=== PATIENT | male | born 1995 | race Caucasian/White ===

== ENCOUNTER 2024-08-09 06:20 | Observation (INO) | payer OTHER, SELFPAY ==
[2024-08-09] VITALS (25 sets, daily range): BP systolic 113–165; BP diastolic 61–102; PULSE 60–103; RESP 16–20; TEMP 36.7–37.2; O2SAT 94–99; BMI 30.7
--- NOTE | 2024-08-09 | DI.RAD.S_ITS ---
PROCEDURE: XR ABDOMEN 1V INDICATIONS: LEFT STENT CYSTO TECHNIQUE: 3 fluoroscopic view of the abdomen acquired. COMPARISON: [facility], CT, CT ABDOMEN PELVIS WO CON, 08/09/2024, 6:52. FINDINGS: Left ureteral stent. Dilated left renal collecting system. The previously seen stone in the distal left ureter is not appreciated. IMPRESSION: Intraoperative guidance provided. Left ureteral stent. Dictated by: Alli Tidwell M.D. on 08/09/2024 at 19:26 Approved by: Alli Tidwell M.D. on 08/09/2024 at 19:28
--- NOTE | 2024-08-09 06:48 | DI.CT.S_ITS ---
PROCEDURE: CT ABDOMEN PELVIS WO CON INDICATIONS: abdomen/left flank pain TECHNIQUE: Axial sections were acquired from the lung bases to the pubic symphysis. Coronal and sagittal reformats were performed. For radiation dose reduction, the following was used: automated exposure control, adjustment of mA and/or kV according to patient size. COMPARISON: None. FINDINGS: Image quality: Diagnostic. Lower Chest: No significant findings. URINARY: Right Kidney: No stones or hydronephrosis. Right Ureter: No hydroureter. Left Kidney: Moderate to severe left-sided hydronephrosis and extensive left perinephric fat stranding is seen. Left Ureter: Moderate to severe left-sided hydroureter and periureteral fat stranding. 6 x 5 x 8 millimeter stone is seen in distal left ureter series 2, image 115. The stone measures 1558 Hounsfield unit in density. Bladder: Normal wall thickness. No stones. ABDOMEN: Liver: No contour-deforming solid mass. Gallbladder: No radiopaque gallstones or wall thickening. Biliary ducts: No biliary dilation. Pancreas: No ductal dilation. Spleen: Size is within normal limits. Adrenal Glands: No adrenal nodules. Stomach and Bowel: Small hiatal hernia. Normal colonic caliber, without significant wall thickening. appendix is visualized and is within normal limits. No abscess collection. Peritoneum: No abnormal intraperitoneal fluid. No free air. Ventral Wall: No hernia. Abdominal Nodes: No enlarged retroperitoneal or mesenteric lymph nodes. Vessels: Aorta and inferior vena cava are normal in size. PELVIS: Pelvic Organs: Unremarkable. Pelvic Nodes: Unremarkable. Miscellaneous: No inguinal hernias are seen. Bones: Unremarkable. IMPRESSION: 1. 6 x 5 x 8 millimeter distal left ureteral stone measures 1558 Hounsfield unit in density causing moderate to severe left-sided hydronephrosis and hydroureter . No right-sided renal stones or hydronephrosis. Normal appearing urinary bladder. 2. No bowel obstruction. No abnormal bowel wall thickening or mesenteric fat stranding. Normal appendix. No free fluid or free air. No discrepancies from preliminary reading. Dictated by: Justin Vieyra M.D. on 08/09/2024 at 10:20 Approved by: Justin Vieyra M.D. on 08/09/2024 at 10:24
[2024-08-09] MEDS: KETOROLAC 30 MG/ML VIAL 15 MG IV (06:49)
[2024-08-09] MEDS: SODIUM CHLORIDE 0.9% 1,000 ML 1000 ML IV (06:50)
--- NOTE | 2024-08-09 07:18 | ED.ABDPAIN ---
HPI - Abdominal Pain General Chief Complaint: Abdominal Pain Stated Complaint: abd pain, back pain, n/v/d Time Seen by Provider: 08/09/24 06:22 Source: patient, RN notes reviewed and old records reviewed Mode of arrival: Ambulatory Limitations: no limitations History of Present Illness HPI narrative: [age] year old male no reported medical issues come in with with complaint of left flank and abdominal pain that started last night. Patient states was sort of a gradual onset but has been persistent. 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 It lasted for a day or so. Patient denies any fevers or chills. States he did have some nausea and vomiting overnight. No chest pain or shortness of breath. Patient states normal bowel movements no diarrhea or constipation. No dysuria, urgency or frequency. No testicular pain. No rash or skin changes. No recent trauma. Patient thought it might have been the windy said he ate but that was at 10:00 a.m. yesterday morning almost 24 hours ago and proximally 10 hours before his symptoms started. Patient took Tums and melatonin at home last night but has not had anything else for pain. Patient states no daily prescription medications. No prior surgeries. No known drug allergies. No tobacco, occasional alcohol, no recreational drugs. Primary care [facility] [employer] [facility]. Patient is accompanied by his girlfriend. Related Data Previous Rx's Medication Instructions Recorded oxycodone 5 mg tablet 5 mg PO Q8H PRN pain (scale score 08/09/24 7-10) #5 tabs tamsulosin 0.4 mg capsule 0.4 mg PO DAILY #90 caps 08/09/24 Allergies Allergy/AdvReac Type Severity Reaction Status Date / Time No Known Drug Allergies Allergy Verified 08/09/24 06:27 Review of Systems Review of Systems ROS Unobtainable: All systems reviewed & are unremarkable except as noted in HPI and below Patient History Social History household members: family Smoking Status: Never smoker Smoking Status: Never smoker Exam Narrative Exam Narrative: GENERAL: Alert and oriented x three, male in mild distress HEENT: Head normocephalic, atraumatic, EOMI, pupils reactive, face symmetric, moist mucous membranes NECK: Supple, full range of motion CARDIOVASCULAR: Regular rate and rhythm without murmurs, rubs or gallops. RESPIRATORY: Breath sounds equal bilaterally, no wheezes rales or rhonchi. ABDOMEN: Soft, nontender. Normoactive bowel sounds all 4 quadrants. No guarding or rebound, rigidity, no mass : Mild left CVA tenderness EXTREMITIES: Normal range of motion, no clubbing or edema. Neurovascularly intact NEUROLOGICAL: Cranial nerves II through XII grossly intact. Moving all extremities SKIN: Warm, dry, no petechiae, no rashes or lesions, no ecchymosis. Initial Vital Signs Initial Vital Signs: Vital Signs Temperature 98.3 F 08/09/24 06:27 Pulse Rate 78 08/09/24 06:27 Respiratory Rate 16 08/09/24 06:27 Blood Pressure 149/91 H 08/09/24 06:27 Pulse Oximetry 95 08/09/24 06:27 Oxygen Delivery Method Room Air 08/09/24 06:27 Course Orders Ordered: Discontinued Medications Acetaminophen (Acetaminophen 325 Mg Tablet) 975 mg PO Q6H PRN PRN Reason: Pain, Mild (1-3) Fentanyl (Fentanyl 100 Mcg/2 Ml Inj) 0 mcg IV Q5M PRN PRN Reason: Pain, Moderate (4-6) Hydromorphone HCl (Hydromorphone 0.5 Mg Inj) 0.5 mg IV NOW ONE Stop: 08/09/24 15:32 Last Admin: 08/09/24 15:35 Dose: 0.5 mg Documented By: MARTA Hydromorphone HCl (Hydromorphone 1 Mg Inj) 0 mg IV Q5MIN PRN PRN Reason: Pain, Moderate (4-6) Hydromorphone HCl (Hydromorphone 0.5 Mg Inj) 0.5 mg IV Q2H PRN PRN Reason: Breakthrough Pain Hydroxyzine HCl (Hydroxyzine 50 Mg/Ml Inj) 25 mg IM NOW PRN PRN Reason: Pain, Mild (1-3) Last Admin: 08/09/24 18:51 Dose: 25 mg Documented By: KYLAH Sodium Chloride (Normal Saline 0.9%) 1,000 mls @ 1,000 mls/hr IV BOLUS ONE Stop: 08/09/24 07:43 Last Infusion: 08/09/24 07:58 Dose: Infused Documented By: Admin: 08/09/24 06:50 Dose: 1,000 mls/hr Documented By: CHRISTAL Ceftriaxone Sodium 2,000 mg/ (Sodium Chloride) 100 mls @ 200 mls/hr IV NOW ONE Stop: 08/09/24 12:39 Last Admin: 08/09/24 12:44 Dose: 200 mls/hr Documented By: ANGELES Lactated Ringer's (Lactated Ringers) 1,000 mls @ 42 mls/hr IV CONT DEANA Last Infusion: 08/09/24 18:01 Dose: Infused Documented By: Admin: 08/09/24 14:00 Dose: 42 mls/hr Documented By: MARTA Lactated Ringer's (Lactated Ringers) 1,000 mls @ 42 mls/hr IV CONT DEANA Last Infusion: 08/09/24 18:52 Dose: Infused Documented By: Admin: 08/09/24 18:02 Dose: 42 mls/hr Documented By: MARTA Iopamidol (Iopamidol 30 Ml Vial) 10 ml INTRAURETH NOW ONE Stop: 08/09/24 18:25 Last Admin: 08/09/24 18:24 Dose: 10 ml Documented By: SALLY Ketorolac Tromethamine (Ketorolac 30 Mg/Ml Vial) 15 mg IV NOW ONE Stop: 08/09/24 06:45 Last Admin: 08/09/24 06:49 Dose: 15 mg Documented By: CHRISTAL Meperidine HCl (Meperidine 50 Mg/Ml Inj) 12.5 mg IV PACUNOW PRN PRN Reason: Mild pain or shivering Morphine Sulfate (Morphine 4 Mg/Ml Inj) 4 mg IV NOW ONE Stop: 08/09/24 09:45 Last Admin: 08/09/24 10:00 Dose: 4 mg Documented By: FIDEL Ondansetron HCl (Ondansetron 4 Mg/2 Ml Inj) 4 mg IV NOW PRN PRN Reason: Nausea And Vomiting Last Admin: 08/09/24 18:52 Dose: 4 mg Documented By: KYLAH Ondansetron HCl (Ondansetron 4 Mg/2 Ml Inj) 4 mg IV Q4H PRN PRN Reason: Nausea And Vomiting Oxycodone HCl (Oxycodone Ir 5 Mg Tablet) 5 mg PO PACUNOW PRN PRN Reason: Mild or moderate pain Oxycodone HCl (Oxycodone Ir 5 Mg Tablet) 5 mg PO Q4H PRN PRN Reason: Pain, Moderate (4-6) Oxycodone HCl (Oxycodone Ir 10 Mg Tablet) 10 mg PO Q4HR PRN PRN Reason: Pain, Severe (7-10) Vital Signs Vital signs: Vital Signs - 8 hr 08/09/24 06:27 08/09/24 06:35 08/09/24 06:35 Temperature 98.3 F Pulse Rate 78 74 Respiratory Rate 16 Blood Pressure 149/91 H 165/102 H Pulse Oximetry 95 95 Oxygen Delivery Method Room Air Room Air 08/09/24 07:00 08/09/24 07:30 08/09/24 07:46 Temperature Pulse Rate 75 61 Respiratory Rate Blood Pressure 145/85 H Pulse Oximetry 95 96 Oxygen Delivery Method 08/09/24 07:46 08/09/24 08:00 08/09/24 08:00 Temperature Pulse Rate 68 70 Respiratory Rate Blood Pressure 137/79 Pulse Oximetry 96 97 Oxygen Delivery Method 08/09/24 08:30 08/09/24 08:30 08/09/24 09:01 Temperature Pulse Rate 66 72 Respiratory Rate Blood Pressure 127/81 Pulse Oximetry 96 96 Oxygen Delivery Method 08/09/24 09:30 08/09/24 10:00 08/09/24 10:04 Temperature Pulse Rate 62 68 Respiratory Rate Blood Pressure 129/87 Pulse Oximetry 96 96 Oxygen Delivery Method 08/09/24 10:04 08/09/24 10:30 08/09/24 10:30 Temperature Pulse Rate 70 75 Respiratory Rate Blood Pressure 135/63 Pulse Oximetry 96 94 Oxygen Delivery Method 08/09/24 11:00 08/09/24 11:00 08/09/24 11:30 Temperature Pulse Rate 67 61 Respiratory Rate Blood Pressure 129/70 Pulse Oximetry 94 96 Oxygen Delivery Method 08/09/24 11:31 08/09/24 11:41 08/09/24 11:41 Temperature Pulse Rate 72 76 Respiratory Rate Blood Pressure 130/71 Pulse Oximetry 95 97 Oxygen Delivery Method 08/09/24 12:00 08/09/24 12:00 08/09/24 12:30 Temperature Pulse Rate 67 60 Respiratory Rate Blood Pressure 123/75 Pulse Oximetry 99 97 Oxygen Delivery Method 08/09/24 12:30 Temperature Pulse Rate Respiratory Rate Blood Pressure 136/76 Pulse Oximetry Oxygen Delivery Method MDM - Abdominal Pain Lab Data 08/09/24 06:40 08/09/24 06:40 Labs: Lab Results 08/09/24 08/09/24 Range/Units 06:40 09:28 WBC 15.0 H (4.5-11.0) X10^3/uL RBC 5.32 (4.5-5.9) X10^6/uL Hgb 15.7 (13.5-17.5) g/dL Hct 46.9 (41-53) % MCV 88.3 (80-100) fL MCH 29.6 (26-34) PG MCHC 33.5 (30-36) % RDW 13.5 (11.6-14.8) % Plt Count 239 (150-400) X10^3/uL Neut % (Auto) 82.7 H (50-75) % Lymph % (Auto) 8.7 L (25-40) % Phillips % (Auto) 8.3 (3-14) % Eos % (Auto) 0.2 L (2-4) % Baso % (Auto) 0.1 (0-2) % Neut # (Auto) 54260 H (1984-0541) /uL Lymph # (Auto) 1300 (2890-6253) /uL Phillips # (Auto) 1200 H (0-900) /uL Eos # (Auto) 0 (0-450) /uL Baso # (Auto) 0 (0-100) /uL Sodium 139 (137-145) mmol/L Potassium 3.9 (3.4-5.1) mmol/L Chloride 103 (98-107) mmol/L Carbon Dioxide 27 (22-32) mmol/L BUN 19 (9-20) mg/dL Creatinine 1.22 (0.66-1.25) mg/dL Estimated GFR > 60 (>60) mL/min BUN/Creatinine Ratio 15.6 (6-22) Glucose 159 H (70-100) mg/dL Calcium 9.8 (8.4-10.2) mg/dL Total Bilirubin 1.0 (0.2-1.3) mg/dL AST 34 (17-59) IU/L ALT 35 (<50) IU/L Alkaline Phosphatase 78 (38-126) U/L Total Protein 8.3 H (6.3-8.2) g/dL Albumin 4.7 (3.5-5.0) g/dL Globulin 3.6 (1.7-4.1) g/dL Albumin/Globulin Ratio 1.3 (1.0-2.8) Lipase 51 (23-300) U/L Urine RBC 5-10/hpf H (0-5/HPF) Urine WBC 1-5/hpf (0-5/HPF) Ur Squamous Epith Cells 1-5 /hpf (0-5/HPF) Calcium Oxalate Crystal Occasional H Urine Bacteria Occasional (0-1) (None) Ur Culture Indicated? Cult not indicated Vol Urine Centrifuged 10ml (spun) Point of care testing: Urine Dip Bedside Urine Glucose Negative Bedside Urine Bilirubin - Negative Bedside Urine Ketone - Negative Urine Specific Bliss 1.030 Bedside Urine Occult Blood + Bedside Urine pH 6.0 Bedside Urine Protein - Negative Bedside Urine Urobilinogen - Negative Bedside Urine Nitrite - Negative Bedside Urine Leukocytes - Negative Esterase MDM Narrative Medical decision making narrative: 28-year-old male presents with complaint of left abdominal and flank pain sort of gradual onset but had some nausea or vomiting overnight had received Toradol prior to my evaluation he was feeling much improved. Labs show white count of 15 hemoglobin of 15.7 platelets of 239. Electrolytes are appropriate, BUN 19 creatinine is 1.22 no priors for comparison glucose is 159 LFTs are otherwise negative lipase is 51 Point of care urine shows blood no nitrates no leuks. CT KUB from night rad read severe left hydro with moderate left hydroureter secondary to 6 x 5 x 8 mm calculus distal left ureter at the level of the inferior left sacroiliac joint focal periureteral edema at the site prominent perinephric stranding no seems within the left kidney unenhanced right kidney unremarkable. Moderate fluid distention of the stomach. No free fluid or free air. Appendix is normal. Patient had Toradol and fluids. Patient was feeling improved after these medications. Recheck at 9:46 a.m. patient's pain is still doing very well but he was starting to notice a little bit of increased. We will give an additional dose of pain medication. Patient was able to give urine sample reviewed his findings. Consult with Dr. Luong Urology. Discussed patient's findings from day he reviewed the imaging. Concerned that patient may bounce back this weekend with persistent pain and he was not on-call will come evaluate patient here in the department. Patient updated he was much more comfortable after additional pain medication. Dr. Luong patient here in the department and after discussion we will take to the OR for same-day surgery. Does ask for a dose of 2 g Rocephin for surgical prophylaxis. Discharge Plan Departure Patient Disposition: Admitted to Surgery Clinical Impression: Kidney stone on left side Admit Date/Time: 08/09/24 13:55 Admit Provider: Jesse Luong
[2024-08-09 07:24] LABS: Add Manual Diff / Slide Review NO; Basophils Absolute Auto 0 /uL (0-100); Basophils Percent Auto 0.1 % (0-2); Eosinophils Absolute Auto 0 /uL (0-450); Eosinophils Percent Auto 0.2 % (2-4); Hematocrit 46.9 % (41-53); Hemoglobin 15.7 g/dL (13.5-17.5); Lymphocytes Absolute Auto 1300 /uL (1100-4500); Lymphocytes Percent Auto 8.7 % (25-40); Mean Corpuscular HGB Conc 33.5 % (30-36); Mean Corpuscular Hemoglobin 29.6 PG (26-34); Mean Corpuscular Volume 88.3 fL (80-100); Monocytes Absolute Auto 1200 /uL (0-900); Monocytes Percent Auto 8.3 % (3-14); Neutrophils Absolute Auto 12400 /uL (1500-7000); Neutrophils Percent Auto 82.7 % (50-75); Platelet Count 239 X10^3/uL (150-400); Red Blood Cell Count 5.32 X10^6/uL (4.5-5.9); Red Cell Distribution Width 13.5 % (11.6-14.8)
[2024-08-09 07:31] LABS: Alanine Aminotransferase 35 IU/L (<50); Albumin 4.7 g/dL (3.5-5.0); Albumin Globulin Ratio 1.3 (1.0-2.8); Alkaline Phosphatase 78 U/L (38-126); Aspartate Aminotransferase 34 IU/L (17-59); BUN Creatinine Ratio 15.6 (6-22); Blood Urea Nitrogen 19 mg/dL (9-20); Calcium 9.8 mg/dL (8.4-10.2); Carbon Dioxide 27 mmol/L (22-32); Chloride 103 mmol/L (98-107); Estimated Glomerular Filt Rate > 60 mL/min (>60); Globulin 3.6 g/dL (1.7-4.1); Glucose 159 mg/dL (70-100); HEMOLYSIS < 15 (0-50); Lipase 51 U/L (23-300); Potassium 3.9 mmol/L (3.4-5.1); Sodium 139 mmol/L (137-145); Total Protein 8.3 g/dL (6.3-8.2)
[2024-08-09] MEDS: MORPHINE 4 MG/ML INJ IV (10:00)
[2024-08-09 10:14] LABS: Bacteria Urine Occasional (0-1); Calcium Oxalate Crystals Urine Occasional; Culture Indicated Urine Cult Not Indicated; RBC Urine 5-10/HPF (0-5/HPF); Squamous Epithelial Cell Urine 1-5 /HPF (0-5/HPF); Urine Volume 10mL (spun); WBC Urine 1-5/HPF (0-5/HPF)
--- NOTE | 2024-08-09 12:29 | PM.CN.IH.1 ---
History of Present Illness Consult details Date Patient Seen: 08/09/24 Time Patient Seen: 12:29 Chief complaint: left flank pain, nausea, vomiting Narrative: 28 y/o M presents to ER for evaluation of severe flank pain w/ associated nausea and vomiting. Briefly, he first developed severe left flank pain w/ nausea and vomiting in the very [employer] hours of 09 Aug 2024. He tried to sip some water and go back to sleep, however, the pain and nausea continued to worsen, prompting his presentation to ER for further evaluation. He otherwise denies urinary frequency/urgency, dysuria, suprapubic pain/discomfort, fevers, chills. His evaluation was notable for AFVSS. His WBC is 15, sCr 1.22 and an unremarkable UA. His CT KUB was notable for an 8mm distal left ureterolith w/ resultant upstream moderate to severe left hydroureteronephrosis. Urology was consulted regarding the degree of hydronephrosis and questionable pain control. Meds Home Medications and Allergies Home Medications Medication Instructions Recorded Confirmed Type No Known Home Medications 08/09/24 08/09/24 History Allergies Allergy/AdvReac Type Severity Reaction Status Date / Time No Known Drug Allergies Allergy Verified 08/09/24 06:27 Review of Systems Review of Systems Narrative: CONSTITUTIONAL: Denies weight loss, fevers, chills. HEENT: Denies change in vision, hearing. RESP: Denies SOB, cough. CV: Denies palpations, CP. GI: Denies abdominal pain, diarrhea. : Denies dysuria, hematuria, inability to void. MSK: Denies myalgia, joint pain. SKIN: Denies rash, pruritus. NEURO: Denies headache, syncope. PSYCH: Denies recent change in mood, anxiety, depression. Exam Vital Signs (past 8 hours): - 08/09/24 06:27 08/09/24 06:35 08/09/24 06:35 Temperature 98.3 F Pulse Rate 78 74 Respiratory Rate 16 Blood Pressure 149/91 H 165/102 H Pulse Oximetry 95 95 Oxygen Delivery Method Room Air Room Air 08/09/24 07:00 08/09/24 07:30 08/09/24 07:46 Temperature Pulse Rate 75 61 Respiratory Rate Blood Pressure 145/85 H Pulse Oximetry 95 96 Oxygen Delivery Method 08/09/24 07:46 08/09/24 08:00 08/09/24 08:00 Temperature Pulse Rate 68 70 Respiratory Rate Blood Pressure 137/79 Pulse Oximetry 96 97 Oxygen Delivery Method 08/09/24 08:30 08/09/24 08:30 08/09/24 09:01 Temperature Pulse Rate 66 72 Respiratory Rate Blood Pressure 127/81 Pulse Oximetry 96 96 Oxygen Delivery Method 08/09/24 09:30 08/09/24 10:00 08/09/24 10:04 Temperature Pulse Rate 62 68 Respiratory Rate Blood Pressure 129/87 Pulse Oximetry 96 96 Oxygen Delivery Method 08/09/24 10:04 08/09/24 10:30 08/09/24 10:30 Temperature Pulse Rate 70 75 Respiratory Rate Blood Pressure 135/63 Pulse Oximetry 96 94 Oxygen Delivery Method 08/09/24 11:00 08/09/24 11:00 08/09/24 11:30 Temperature Pulse Rate 67 61 Respiratory Rate Blood Pressure 129/70 Pulse Oximetry 94 96 Oxygen Delivery Method 08/09/24 11:31 08/09/24 11:41 08/09/24 11:41 Temperature Pulse Rate 72 76 Respiratory Rate Blood Pressure 130/71 Pulse Oximetry 95 97 Oxygen Delivery Method 08/09/24 12:00 08/09/24 12:00 Temperature Pulse Rate 67 Respiratory Rate Blood Pressure 123/75 Pulse Oximetry 99 Oxygen Delivery Method Oxygen Delivery Method Room Air Narrative Exam Narrative: GEN: Alert and oriented X3. No acute distress. Well-nourished. EYES: PERRLA, EOMI. HENT: Moist mucus membranes, no scleral icterus, normal neck ROM. RESP: Unlabored breathing, equal rise and fall of chest bilaterally, no cyanosis appreciated. CV: No peripheral edema, unremarkable heart rate. ABD: Soft, non-tender, non-distended, no palpable masses. : L CVAT, no R CVAT. EXT: No edema, clubbing or cyanosis. SKIN: No rashes or lesions. NEURO: No focal neurologic deficits, CN II-XII grossly intact. PSYCH: Cooperative, appropriate mood and affect. Objective Labs 08/09/24 06:40 08/09/24 06:40 Labs: Laboratory Results - last 24 hr 08/09/24 08/09/24 06:40 09:28 WBC 15.0 H RBC 5.32 Hgb 15.7 Hct 46.9 MCV 88.3 MCH 29.6 MCHC 33.5 RDW 13.5 Plt Count 239 Neut % (Auto) 82.7 H Lymph % (Auto) 8.7 L [place] % (Auto) 8.3 Eos % (Auto) 0.2 L Baso % (Auto) 0.1 Neut # (Auto) 43160 H Lymph # (Auto) 1300 [place] # (Auto) 1200 H Eos # (Auto) 0 Baso # (Auto) 0 Sodium 139 Potassium 3.9 Chloride 103 Carbon Dioxide 27 BUN 19 Creatinine 1.22 Estimated GFR > 60 BUN/Creatinine Ratio 15.6 Glucose 159 H Calcium 9.8 Total Bilirubin 1.0 AST 34 ALT 35 Alkaline Phosphatase 78 Total Protein 8.3 H Albumin 4.7 Globulin 3.6 Albumin/Globulin Ratio 1.3 Lipase 51 Urine RBC 5-10/hpf H Urine WBC 1-5/hpf Ur Squamous Epith Cells 1-5 /hpf Calcium Oxalate Crystal Occasional H Urine Bacteria Occasional (0-1) Ur Culture Indicated? Cult not indicated Vol Urine Centrifuged 10ml (spun) [facility] Tobacco & Substance Use Smoking Status: Never smoker Assessment & Plan Assessment and plan (1) Left ureteral calculus: Status: Acute Plan: 28 y/o M noted to have an 8mm left distal ureterolith with resultant upstream moderate to severe left hydroureteronephrosis, WBC of 15, sCr of 1.22 and an unremarkable UA. Discussed treatment options to include continued medical expulsion therapy vs cystoscopy, ureteroscopy, laser lithotripsy with ureteral stent placement. Discussed risks of the procedure to include pain, bleeding, infection, injury to urethra/bladder/ureter, inability to access the ureter requiring discussion with Interventional Radiology regarding a possible ureteral stent placement in an antegrade fashion vs a possible nephroureteral stent and/or percutaneous nephrostomy tube, urinary tract infection, inability to remove all of the stone in one setting, need for emergent open repair of bladder and/or ureter, need for multiple ureteroscopic interventions necessary to render the patient stone free. As he has training with the [employer] in August of 2024, he would strongly prefer a chance to become stone free before that. Therefore, he opted for management via a cystoscopy, left ureteroscopy, laser lithotripsy and left ureteral stent placement. Informed consent was obtained. Time-Based Coding :: [TOTAL MINUTES] spent with patient and on the chart (including review of chart, obtaining history, exam, reviewing outside data, placing orders, documenting exam and treatment plan, and counseling patient) on [DATE]. PROFEE Charge Codes Inpatient or Observation consultation: [id number]
[2024-08-09] MEDS: cefTRIAXone 2,000 MG in SODIUM CHLORIDE 0.9% 100 ML 200 MG IV (12:44)
[2024-08-09] MEDS: LACTATED RINGERS 1,000 ML 42 ML IV ×2 (14:00→18:02)
--- NOTE | 2024-08-09 15:16 | SUR.HOLD ---
Patient resting quietly and ambulating to the bathroom without difficulty. C/o Flank pain, mild; nursing staff calling surgeon to inquire about pain medication.
--- NOTE | 2024-08-09 15:31 | SUR.HOLD ---
Received verbal orders from Dr Luong for Dilaudid 0.5 mg IV now one dose.
[2024-08-09] MEDS: HYDROMORPHONE 0.5 MG INJ IV (15:35)
--- NOTE | 2024-08-09 18:22 | SUR.OPER ---
Lithotomy on padded OR bed, head on pillow, arms secured on padded arm boards at <90 degrees abduction. Legs secured in padded yellow fins stirrups.
[2024-08-09] MEDS: iopamidoL 30 ML VIAL 10 ML INTRAURETH (18:24)
--- NOTE | 2024-08-09 18:47 | P.OP_ITS ---
Procedure & Clinicians Procedure: Cystoscopy Left retrograde ureteropyelogram Left ureteral stent placement Intraoperative interpretation of fluoroscopic images, total time < 1 hour Same procedure as scheduled: Yes Indications: 28 y/o M noted to have an 8mm left distal ureterolith with resultant upstream moderate to severe left hydroureteronephrosis and continued difficulty with pain control. Discussed that the laser machine in the OR is not functional at this time, therefore, will plan for a left ureteral stent placement and will return for left ureteroscopy with laser lithotripsy and ureteral stent exchange in the near future. Surgeon: Jesse Luong Click Yes if Unassisted: Yes Anesthesia Type: General Operative Notes Findings: Severe left hydronephrosis Closure Type: not applicable Specimen(s): none sent Estimated Blood Loss (mL): 2 Blood products transfused: none Procedure in detail: Patient was identified in the preoperative holding area and consent confirmed. He was then brought to the operating room where general anesthesia was induced.? He was then placed in the low lithotomy position. He was then prepped and draped in the usual sterile fashion. A surgical timeout was conducted and all were in agreement. He was noted to have slight meatal stenosis, this was dilated using the 21Fr blind obturator. Access to the bladder was obtained via a 21Fr cystoscope.? Complete cystoscopy was performed and no concerning masses or lesions were noted. Bilateral ureteral orifices were noted to be orthotopic in nature.? The left ureteral orifice was easily visualized and a 0.035 sensor tip ureteral guidewire was advanced through the 5Fr ureteral catheter and into the left renal collecting system.? The ureteral guidewire was removed and a retrograde py elogram was performed which noted severe left hydronephrosis.? The ureteral guidewire was readvanced through the ureteral catheter and into the left renal pelvis.? The ureteral catheter was then removed.? A 6Fr multi-length JJ ureteral stent without strings was then advanced over the ureteral guidewire and into the left renal collecting system.? Upon removal of the ureteral guidewire, a good curl was appreciated within the left renal pelvis upon fluoroscopy and visually within the bladder.? The bladder was then drained and the cystoscope was removed.? Anesthesia was reversed, he was extubated in the OR and transferred to the PACU in stable condition for recovery. Complications: none Post-operative Condition: stable Disposition: PACU Plan for aftercare: Discharge home from PACU. Will return to the OR for a left ureteroscopy, laser lithotripsy and left ureteral stent exchange anywhere from 1-12 weeks from now. He will be contacted by our surgical schedulers to coordinate this procedure.
[2024-08-09] MEDS: hydrOXYzine 50 MG/ML INJ 25 MG IM (18:51)
[2024-08-09] MEDS: ONDANSETRON 4 MG/2 ML INJ IV (18:52)
--- NOTE | 2024-09-04 16:16 | PC.NURSE ---
late entry per RN IV antibiotics was completing as patient transfered to surgery
== END 2024-08-09 19:29 | disposition home or self-care (01) ==
LOC: ED 13:55 → AC 13:56
PROVIDERS: Admitting Provider Urology; Emergency Provider Emergency Medicine; Referring Provider Emergency Medicine; Visit Provider Urology
PROC: 0TF78ZZ Fragmentation in Left Ureter, Via Natural or Artificial Opening Endoscopic (ICD-10-PCS; CPT 52353; principal; 2024-08-09 17:30)
DX: N13.2 Hydronephrosis with renal and ureteral calculous obstruction (principal)
CPT/HCPCS: 52332; 74018; 74176; 74420; 76000; 80053; 81003; 81015; 83690; 85025; 96361; 96365; 96375; 99222; 99283; 99285; G0378; C2617; J0696; J1171; J1885; J2250; J2270; J2405; J2704; J3010; J3410; Q9967

== ENCOUNTER 2024-09-07 10:55 | Day surgery (SDC) | payer OTHER, SELFPAY ==
[2024-09-07] VITALS (10 sets, daily range): BP systolic 122–144; BP diastolic 68–91; PULSE 70–90; RESP 12–18; TEMP 36.2–36.7; O2SAT 92–99
--- NOTE | 2024-09-07 | DI.RAD.S_ITS ---
PROCEDURE: XR ABDOMEN 1V INDICATIONS: CYSTOSCOPY TECHNIQUE: 2 intra-operative images acquired by the Urology service. COMPARISON: [facility], CR, XR ABDOMEN 1V, 08/09/2024, 18:27. [facility], CT, CT ABDOMEN PELVIS WO CON, 08/09/2024, 6:52. FINDINGS: Persistent dilatation of the left collecting system in this patient with previously documented obstructive relatively large distal left ureteral calculus. The calculus is not found by this study. It may have been removed earlier in the examination. IMPRESSION: A total of 2 images were obtained showing ureteral stent placement crossing an area of prior obstructive distal left ureteral calculus seen by CT scanning 08/09/24. A calculus along the visualized course of the left ureteral stent is not found. The upper and lower pigtails are in expected position. Dictated by: Jeff Harris M.D. on 09/07/2024 at 15:53 Approved by: Jeff Harris M.D. on 09/07/2024 at 15:56
[2024-09-07] MEDS: LACTATED RINGERS 1,000 ML 42 ML IV ×2 (11:29→13:44)
[2024-09-07] MEDS: ACETAMINOPHEN 325 MG TABLET 975 MG PO (11:32)
[2024-09-07] MEDS: FAMOTIDINE 20 MG/2 ML VIAL IV (11:32)
--- NOTE | 2024-09-07 12:55 | PM.PREOP ---
Pre-operative Note COVID-19 COVID-19 status: Not tested Interval Note History & Physical reviewed/Exam performed by Physician: Yes Changes to H&P: No
[2024-09-07] MEDS: CEFAZOLIN 2 GM/100 ML PREMIX 100 ML IV (13:12)
--- NOTE | 2024-09-07 13:29 | SUR.OPER ---
Lithotomy on padded OR bed, head on pillow, arms secured on padded arm boards at <90 degrees abduction. Legs secured in padded yellow fins stirrups.
--- NOTE | 2024-09-07 13:31 | SUR.OPER ---
see laser rep paperwork for laser power settings
[2024-09-07] MEDS: iopamidoL 30 ML VIAL INJ (13:35)
--- NOTE | 2024-09-07 14:30 | P.OP_ITS ---
Procedure & Clinicians Procedure: Cystoscopy Left retrograde ureteropyelogram Left ureteroscopy, laser lithotripsy Left ureteral stent exchange Intraoperative interpretation of fluoroscopic images, total time < 1 hour Same procedure as scheduled: Yes Indications: 28 y/o M noted to have an 8mm distal left ureterolith s/p a cystoscopy w/ left ureteral stent placement on 09 Aug 2024 due to the laser being unavailable for laser lithotripsy. He returns today for a cystoscopy, laser lithotripsy and left ureteral stent exchange. Surgeon: Jesse Luong Click Yes if Unassisted: Yes Anesthesia Type: General Operative Notes Findings: Very impacted left distal ureteral stone Closure Type: not applicable Specimen(s): none sent Estimated Blood Loss (mL): 20 Procedure in detail: Patient was identified in the preoperative holding area and consent confirmed. He was then brought to the operating room where general anesthesia was induced.? He was placed in the low lithotomy position. He was then prepped and draped in the usual sterile fashion. A surgical timeout was conducted and all were in agreement. Access to the bladder was obtained via a 30 degree cystoscope.? Complete cystoscopy was then performed and no concerning bladder masses or lesions were appreciated.? Bilateral ureteral orifices were easily identified and noted to be orthotopic in nature.? The previously placed left ureteral stent was easily visualized and externalized. A 0.035 ureteral guidewire was then advanced through the stent and into the left renal collecting system. The semirigid ureteroscope was then advanced alongside the ureteral guidewire and into the distal left ureter where a very impacted left ureteral stone was visualized. A 200 micron laser fiber was then utilized to perform laser lithotripsy.? Unforu nately, the distal left ureter was noted to be very edematous secondary to the aforementioned impacted stone. Attempts to advance the semirigid ureteroscope past the aforementioned edema was unsuccessful, followed by attempts with the flexible ureteroscope and the 11/13Fr ureteral access sheath. Therefore, the ureteroscope was removed and the ureter was then directly visualized upon removal of the ureteroscope and noted to be stone free.? The cystoscope was then backloaded over the ureteral guidewire and into the bladder. A 6Fr multi-length JJ ureteral stent without strings was then advanced over the guidewire and into the left renal pelvis.? Upon removal of the guidewire, a good curl was noted in the left renal pelvis upon fluoroscopy and visually within the bladder.? The bladder was then drained.? Anesthesia was reversed, he was extubated in the OR and transferred to the PACU in stable condition for recovery. Complications: none Post-operative Condition: stable Disposition: PACU Plan for aftercare: Discharge home from PACU. Will return to the OR in 2-12 weeks for a repeat cystoscopy, left ureteroscopy, laser lithotripsy and left ureteral stent exchange.
[2024-09-07] MEDS: OXYCODONE IR 5 MG TABLET PO ×2 (15:12→16:49)
[2024-09-07] MEDS: hydrOXYzine HCL 25 MG TABLET PO (15:12)
[2024-09-07] MEDS: ONDANSETRON 4 MG/2 ML INJ IV (15:12)
[2024-09-07] MEDS: PHENAZOPYRIDINE 100 MG TABLET 200 MG PO (15:23)
--- NOTE | 2024-09-07 16:08 | SUR.PHASEI ---
Pt came out of OR with a simple mask. Pt weaned off O2. Pt given incentive spirometer and taught pt how to use the spirometer. Pt states he is feeling okay . Pt voided 300cc of bloody urine. Pt transferred to phase 2 and pt got up to toilet and voided. RN strained urine and no stones noted.
== END 2024-09-07 17:08 | disposition home or self-care (01) ==
PROVIDERS: Referring Provider Urology; Visit Provider Urology
PROC: 0TF78ZZ Fragmentation in Left Ureter, Via Natural or Artificial Opening Endoscopic (ICD-10-PCS; CPT 52353; principal; 2024-09-07 12:15)
DX: N20.1 Calculus of ureter (principal)
CPT/HCPCS: 52356; 74018; 74420; 76000; A9270; C2617; J0690; J1100; J2250; J2405; J2704; J3010; Q9967

== ENCOUNTER → 2024-09-18 16:11 | Outpatient (CLI) | payer OTHER, SELFPAY | PROVIDERS: Visit Provider Urology | DX: N20.2 Calculus of kidney with calculus of ureter | CPT/HCPCS: 87086; 99214 ==

== ENCOUNTER → 2024-10-04 08:35 | Outpatient (CLI) | payer OTHER, SELFPAY ==
[2024-10-04 09:40] LABS: Appearance Urine UA CLEAR; Bilirubin Urine UA NEGATIVE (NEGATIVE); Color Urine UA YELLOW; Glucose Urine UA NEGATIVE (Negative); Ketones Urine UA NEGATIVE (NEGATIVE); Leukocyte Esterase Urine UA TRACE (NEGATIVE); Nitrite Urine UA NEGATIVE (Negative); Occult Blood Urine UA 3+ (Negative); Protein Urine UA 2+ (Negative); Specific Gravity Urine UA 1.015 (1.000-1.035); Urobilinogen Urine UA 0.2 E.U./dL (0.2); pH Urine UA 5.5 (4.5-8.0)
[2024-10-04 10:34] LABS: Bacteria Urine Occasional (0-1); RBC Urine 30-100/HPF (0-5/HPF); Squamous Epithelial Cell Urine 0-1 /HPF (0-5/HPF); Urine Volume 10mL (spun); WBC Urine 0-1/HPF (0-5/HPF)
[2024-10-04 10:35] LABS: Culture Indicated Urine Cult Not Indicated
== END ==
PROVIDERS: Visit Provider Urology
DX: N20.1 Calculus of ureter (principal); N20.0 Calculus of kidney
CPT/HCPCS: 81001

== ENCOUNTER 2024-10-08 06:18 | Day surgery (SDC) | payer OTHER, SELFPAY ==
[2024-09-28 13:05] VITALS: BMI 35.9
[2024-10-08] VITALS (9 sets, daily range): BP systolic 136–164; BP diastolic 84–106; PULSE 59–93; RESP 9–16; TEMP 36.2–36.4; O2SAT 93–97; BMI 30.6
[2024-10-08] MEDS: LACTATED RINGERS 1,000 ML 21 ML IV ×2 (06:50→09:07)
--- NOTE | 2024-10-08 07:36 | PM.PREOP ---
Pre-operative Note COVID-19 COVID-19 status: Not tested Interval Note History & Physical reviewed/Exam performed by Physician: Yes Changes to H&P: No
[2024-10-08] MEDS: CEFAZOLIN 2 GM/100 ML PREMIX 100 ML IV (07:50)
--- NOTE | 2024-10-08 08:02 | SUR.OPER ---
Lithotomy on padded OR bed, head on pillow, arms secured on padded arm boards at <90 degrees abduction. Legs secured in padded yellow fins stirrups.
[2024-10-08] MEDS: iopamidoL 30 ML VIAL INJ (08:03)
[2024-10-08] MEDS: ACETAMINOPHEN IV 1,000 MG/100 ML VIAL 400 MG IV (08:50)
--- NOTE | 2024-10-08 10:34 | P.OP_ITS ---
Operative Date/Time/Diagnoses Pre-op diagnosis: Left ureteral stone Post-op diagnosis: same Procedure & Clinicians Procedure: Cystoscopy Left ureteroscopy, basket stone extraction Left retrograde ureteropyelogram Left ureteral stent exchange Intraoperative interpretation of fluoroscopic images, total time < 1 hour Same procedure as scheduled: Yes Indications: 28 y/o M noted to have an 8mm distal left ureterolith s/p a cystoscopy w/ left ureteral stent placement on 09 Aug 2024 followed by a cystoscopy, left ureteroscopy, laser lithotripsy and left ureteral stent exchange on 07 Sep 2024. Discussed the need for a cystoscopy, left ureteroscopy, laser lithotripsy with left ureteral stent exchange to remove his remaining stone fragments secondary to a very impacted stone within his distal left ureter that led to significant ureteral edema and inability to traverse this section of the ureter. Surgeon: Jesse Luong Click Yes if Unassisted: Yes Anesthesia Type: General Operative Notes Findings: Moderate sized left ureterolith Closure Type: not applicable Specimen(s): other (left ureteral stone) Estimated Blood Loss (mL): 5 Blood products transfused: none Procedure in detail: Patient was identified in the preoperative holding area and consent confirmed. He was then brought to the operating room where general anesthesia was induced.? He was placed in the low lithotomy position. He was then prepped and draped in the usual sterile fashion. A surgical timeout was conducted and all were in agreement. Access to the bladder was obtained via a 30 degree cystoscope.? Complete cystoscopy was then performed and no concerning bladder masses or lesions were appreciated.? Bilateral ureteral orifices were easily identified and noted to be orthotopic in nature.? The previously placed left ureteral stent was easily visualized and externalized. A 0.035 sensor tip ureteral guidewire was then advanced through the stent and into the left renal collecting system. The semirigid ureteroscope was then advanced alongside the ureteral guidewire and to the level of his aforementioned large stone. Unfortunately, laser capabilities were not available during his procedure and this was discovered intraoperatively when an error message [id number] was displayed on the [employer] laser. Several calls were made to [employer] representatives in order to fix this issue, these were all unsuccessful. Therefore, the ureteroscope was removed and his distal left ureter was dilated using the 12/14Fr ureteral access sheath. The semirigid ureteroscope was then readvanced into his distal left ureter and a basket was utilized to remove the aforementioned large stone. Another large stone was removed via the basket from his left proximal ureter. The semirigid ureteroscope was then removed and the ureteral access sheath was advanced over the guidewire and into his left proximal ureter, the inner obturator and guidewire were then removed. The flexible ureteroscope was advanced through the sheath and into his left renal collecting system. No other nephroliths were visualized, he was noted to have several submucosal calcifications. The ureteral guidewire was then advanced through the ureteroscope and into the left renal collecting system. The ureter was then directly visualized upon removal of the ureteroscope and access sheath and noted to be stone free.? The cystoscope was then backloaded over the guidewire and advanced into his bladder. A 6Fr multi-length JJ ureteral stent with string was then advanced over the ureteral guidewire.? Upon removal of the guidewire, a good curl was noted in the left renal pelvis upon fluoroscopy and visually within the bladder.? The bladder was then drained and the cystoscope was removed.? Anesthesia was reversed, he was extubated in the OR and transferred to the PACU in stable condition for recovery. Complications: none Post-operative Condition: stable Disposition: PACU Plan for aftercare: Discharge home from PACU. Will return to Urology clinic at 1020 on 05 Nov 2024 to have his left ureteral stent removed.
[2024-10-08] MEDS: OXYCODONE IR 5 MG TABLET PO (10:54)
== END 2024-10-08 12:00 | disposition home or self-care (01) ==
PROVIDERS: Referring Provider Urology; Visit Provider Urology
PROC: (CPT 52352; principal; 2024-10-08 07:45)
DX: N20.1 Calculus of ureter (principal)
CPT/HCPCS: 52352; 52332; 82365; C2617; J0131; J0690; J1100; J2250; J2405; J2704; J3010; Q9967

== ENCOUNTER → 2024-11-14 15:30 | Outpatient (CLI) | payer OTHER, SELFPAY ==
--- NOTE | 2024-11-14 15:31 | DI.CT.S_ITS ---
PROCEDURE: CT KIDNEY URETER BLADDER (KUB) INDICATIONS: 29 y/o M s/p left ureteroscopy for stone, eval for hydro TECHNIQUE: Axial sections were acquired from the lung bases to the pubic symphysis. Coronal and sagittal reformats were performed. For radiation dose reduction, the following was used: automated exposure control, adjustment of mA and/or kV according to patient size. COMPARISON: [facility], CT, CT ABDOMEN PELVIS WO CON, 08/09/2024, 6:52. FINDINGS: Image quality: Diagnostic. Lower Chest: No significant findings. URINARY: Right Kidney: No stones or hydronephrosis. Right Ureter: No hydroureter. Left Kidney: There is slight prominence the collecting system although decreased compared to prior exam. No stone. Left Ureter: No hydroureter. Bladder: Normal wall thickness. No stones. ABDOMEN: Liver: No contour-deforming solid mass. Gallbladder: No radiopaque gallstones or wall thickening. Biliary ducts: No biliary dilation. Pancreas: No ductal dilation. Spleen: Size is within normal limits. Adrenal Glands: No adrenal nodules. Stomach and Bowel: Normal colonic caliber, without significant wall thickening. Peritoneum: No abnormal intraperitoneal fluid. No free air. Ventral Wall: No hernia. Abdominal Nodes: No enlarged retroperitoneal or mesenteric lymph nodes. Vessels: Aorta and inferior vena cava are normal in size. PELVIS: Pelvic Organs: Unremarkable. Pelvic Nodes: Unremarkable. Miscellaneous: No inguinal hernias are seen. Bones: Unremarkable. IMPRESSION: No stones. Slight prominence of the left renal collecting system decreased compared to prior exam. Dictated by: Annetta Do M.D. on 11/14/2024 at 21:59 Approved by: Annetta Do M.D. on 11/14/2024 at 22:00
== END ==
PROVIDERS: Referring Provider Urology; Visit Provider Urology
DX: N20.1 Calculus of ureter (principal)
CPT/HCPCS: 74176